=== PATIENT | female | born 1945 | race Caucasian/White ===

== ENCOUNTER → 2017-01-14 | Outpatient (CLI) | payer OTHER | LOC: FIMAGING 18:41 | PROVIDERS: ATTEND Internal Medicine | DX: S69.91XA Unspecified injury of right wrist, hand and finger(s), initial encounter (principal); M19.041 Primary osteoarthritis, right hand | CPT/HCPCS: 73130; G0463 ==

== ENCOUNTER → 2017-02-20 | Outpatient (CLI) | payer OTHER | LOC: CIMAGING 09:48 | PROVIDERS: ATTEND Family Medicine | DX: J20.9 Acute bronchitis, unspecified (principal) | CPT/HCPCS: 71020-PO ==

== ENCOUNTER 2017-10-07 12:12 | Emergency (ER) | payer OTHER ==
--- NOTE | 2017-10-07 13:09 | EDPHY ---
H & P Stated Complaint: TRIPPED ON KEMP TRAIL/ABRASIONS/FACIAL TRAUMA/NO LOC/DENIES NECK PAIN Time Seen by Provider: 10/07/17 13:08 - Personal History Current Tetanus Diphtheria and Acellular Pertussis (TDAP): Yes - Medical/Surgical History Hx Asthma: No Hx Chronic Respiratory Disease: No Hx Diabetes: No Hx Cardiac Disease: No Hx Renal Disease: No Hx Cirrhosis: No Hx Alcoholism: No Hx HIV/AIDS: No Hx Splenectomy or Spleen Trauma: No Other PMH: HTN C1-2 FX/FUSED - Social History Smoking Status: Never smoked Constitutional: Initial Vital Signs Temperature (C) 36.4 C 10/07/17 12:18 Heart Rate 76 10/07/17 12:18 Respiratory Rate 18 10/07/17 12:18 Blood Pressure 132/83 H 10/07/17 12:18 O2 Sat (%) 97 10/07/17 12:18 O2 Delivery Mode Room Air Allergies/Adverse Reactions: Penicillins Allergy (Verified 10/07/17 12:16) Rash Home Medications: Medication Instructions Recorded Triamterene/Hctz 37.5/25 1 each PO DAILY #0 tab 10/20/15 [Maxzide-25 (*)] Aspirin 81mg (*) 10/07/17 Atorvastatin Calcium 10/07/17 Hydrocodone/APAP 5/325 [[place] 1 - 2 each PO Q4-6PRN PRN #20 tab 10/07/17 5/325] Ibuprofen [Motrin] 800 mg PO Q8 #20 tab 10/07/17 Medical Decision Making ED Course/Re-evaluation: CHIEF COMPLAINT: Fall HISTORY OF PRESENT ILLNESS: This patient is a 72 year old female presenting with a facial injury following a mechanical fall while hiking earlier today. She states "I bit the dust with my nose and I heard it crack". She struck her left knee and arm when she fell as well and sustained some abrasions, but does not complain of any pain or difficulty with range of motion. She did not lose consciousness. She is not anticoagulated, but does take a daily aspirin. The patient has history of C1/C2 fracture from a fall while hiking two years ago, but she does not feel any unusual pain in that area currently. She has no further complaints at this time. REVIEW OF SYSTEMS: A 10 point review of systems was performed and is negative with the exception of the elements mentioned in the history of present illness. PHYSICAL EXAM: HR, BP, O2 Sat, RR. Temp noted General Appearance: Alert, well hydrated, appropriate, and non-toxic appearing. Head: Atraumatic without scalp tenderness or obvious injury Eyes: Pupils equal, round, reactive to light and accommodation, EOMI, no trauma , no injection. Ears: Clear bilaterally, no perforation, normal landmarks Nose: Abrasion to left side of nose. Left nares contusion. Right nares clear. No evidence of septal hematoma. Throat: There is no erythema or exudates, no lesions, normal tonsils, mucus membranes moist. Neck: Supple at baseline for the patient's cervical fusion, nontender, no lymphadenopathy. Respiratory: No retractions, no distress, no wheezes, and no accessory muscle use. Lungs are clear to auscultation bilaterally. Cardiovascular: Regular rate and rhythm, no murmurs, rubs, or gallops. Good capillary refill all extremities. Gastrointestinal: Abdomen is soft, nontender, non-distended. Musculoskeletal: Normal active ROM of all extremities, atraumatic. Neurological: Alert, appropriate, and interactive. The patient has normal DTRs and non-focal cranial nerves, motor, sensory, and cerebellar exam. Skin: Small abrasion lateral knee. Small skin tear and abrasion lateral forearm proximal to the elbow. No rashes, good turgor, no nodules on palpation. Past medical history: Hypertension Past surgical history: C1-C2 fusion Family history: Noncontributory Social history: . Lives in [place]. Retired. DIAGNOSTICS/PROCEDURES/CRITICAL CARE TIME: None required. DIFFERENTIAL DIAGNOSIS: The differential diagnosis for the patient's trauma included but was not limited to intracranial injury, long bone and pelvic bone fractures, spinal injury, intra-abdominal injury, and intra-thoracic injury. MEDICAL DECISION [id number] y/o female presents with facial trauma secondary to a mechanical fall. Her nose is obviously swollen and has abrasions to the left side. I see no evidence of septal hematoma at this time. There is no necessity for x-ray for further evaluation of the patient's nose here in the emergency department. The patient will follow up with ENT to determine whether she needs reduction or any surgical intervention. Plan to clean patient's abrasions under standard ED protocol. She will then be discharged home in good condition with a prescription for [place] and Ibuprofen for pain relief. Referral to ENT given. The patient is comfortable with this plan. Departure - Departure Disposition: Home, Routine, Self-Care Clinical Impression: Multiple abrasions Nasal fracture Qualifiers: Encounter type: initial encounter Fracture type: closed Qualified Code(s): S02.2XXA - Fracture of nasal bones, initial encounter for closed fracture Condition: Good Instructions: Nasal Fracture (ED), Abrasion (ED) Additional Instructions: 1. Follow up with an Ear, Nose, and Throat specialist in 2-3 days for further evaluation. Call today for an appointment. 2. Return to the emergency department for difficulty breathing, severe pain, fever, uncontrollable nosebleeds, headache, or other worsening of condition. 3. Take ibuprofen as prescribed as needed for pain. Take [place] as prescribed as needed for severe pain. Note: do not take Acetaminophen with Hydrocodone (Vicodin, Lortab) or Oxycodone (Percocet). These medications also contain Acetaminophen. No more than 3000mg of Acetaminophen should be taken in 24 hours (for an adult). Referrals: Fani Freitas MD [Primary Care Provider] - As per Instructions Mc Owens MD [Medical Doctor] - As per Instructions Prescriptions: Hydrocodone/APAP 5/325 [[place] 5/325] 1 - 2 each PO Q4-6PRN PRN #20 tab PRN Reason: Pain, Moderate Ibuprofen [Motrin] 800 mg PO Q8 #20 tab Report Scribed for: Hieu Schofield Report Scribed by: Corinne Gusman Date of Report: 10/07/17 Time of Report: 13:24
[2017-10-07 13:59] VITALS: BP 134/84
== END 2017-10-07 13:59 | disposition home or self-care (01) ==
DX: S02.2XXA Fracture of nasal bones, initial encounter for closed fracture (principal); S80.219A Abrasion, unspecified knee, initial encounter; S50.819A Abrasion of unspecified forearm, initial encounter; I10 Essential (primary) hypertension; Z79.82 Long term (current) use of aspirin; W18.09XA Striking against other object with subsequent fall, initial encounter; Y99.8 Other external cause status; Y93.01 Activity, walking, marching and hiking